=== PATIENT | male | born 1925 | race Native Hawaiian/Other Pacific Islander ===

== ENCOUNTER 2016-12-29 13:00 | Emergency (ER) | payer MEDICARE ==
[2016-12-29 13:01] VITALS: BMI 28.1
[2016-12-29 13:16] VITALS: O2SAT 100
[2016-12-29] MEDS ORDERED: Bacitracin 500 Units/gm Oint Foilpak UD TOP ONE (13:38)
--- NOTE | 2016-12-29 13:40 | C.PDOC ---
History Of Present Illness Pt ambulates with a walker. He tried to ambulate without his walker and he therefore lost balance and fell. He scraped his left elbow against a piece of furniture on the way down. Fall was witnessed by his daughter. No LOC. - HPI Time Seen by Provider: 12/29/16 13:23 Chief Complaint (Nursing): Trauma History Per: Patient, Family Injury Occurred (Timing): Hours Ago: (1) Location Of Injury: Left: Elbow Severity: Mild Additional History Per: Prior Records - Fall Fall:Prior To Injury: Lost Balance Past Medical History Reviewed: Historical Data, Nursing Documentation, Vital Signs Vital Signs: Last Vital Signs Temp 98.4 F 12/29/16 13:12 Pulse 76 12/29/16 13:12 Resp 18 12/29/16 13:12 BP 133/70 12/29/16 13:12 Pulse Ox 100 12/29/16 14:07 - Medical History PMH: Arthritis, CVA, Dementia, Diabetes, Diverticulitis (1991 GI bleed), HTN, Hypercholesterolemia, TIA Surgical History: Coronary Stent (september 2015 at [facility] [place]) - [facility] Procedures DETACHMENT AT LEFT 5TH TOE, COMPLETE, OPEN APPROACH (12/06/15) DILATION OF LEFT FEMORAL ARTERY, PERCUTANEOUS APPROACH (09/23/15) DILATION OF LEFT FOOT ARTERY, PERCUTANEOUS APPROACH (02/26/16) EXCISION OF LEFT METATARSAL, OPEN APPROACH (02/26/16) FLUOROSCOPY OF SUPERIOR VENA CAVA, GUIDANCE (06/29/16) INSERTION OF INFUSION DEV INTO SUP VENA CAVA, PERC APPROACH (06/29/16) OTHER LOCAL DESTRUC SKIN (08/23/14) REPLACE L FOOT SUBCU/FASCIA W NONAUT SUB, OPEN (02/26/16) ULTRASONOGRAPHY OF RIGHT UPPER EXTREMITY VEINS, GUIDANCE (06/29/16) Family History: States: Unknown Family Hx, Diabetes - Social History Hx Tobacco Use: No Hx Alcohol Use: No Hx Substance Use: No - Immunization History Hx Tetanus Toxoid Vaccination: Yes Hx Influenza Vaccination: No Hx Pneumococcal Vaccination: Yes (2012) Review Of Systems Constitutional: Negative for: Fever Cardiovascular: Negative for: Chest Pain, Light Headedness Respiratory: Negative for: Shortness of Breath Gastrointestinal: Negative for: Nausea, Vomiting, Abdominal Pain Genitourinary: Negative for: Hematuria Musculoskeletal: Negative for: Neck Pain, Shoulder Pain, Back Pain, Leg Pain Neurological: Negative for: Weakness, Numbness, Seizures, Altered Mental Status , Headache Physical Exam - Physical Exam Appears: Non-toxic, No Acute Distress Skin: Warm, Dry Head: Atraumatic, Normacephalic Eye(s): bilateral: PERRL, EOMI Neck: Normal ROM, No Midline Cervical Tenderness, No Step Off Deformity, Supple Chest: Symmetrical, No Deformity, No Tenderness Cardiovascular: Rhythm Regular Respiratory: Normal Breath Sounds, No Accessory Muscle Use Gastrointestinal/Abdominal: Soft, No Tenderness Back: Normal Inspection, No CVA Tenderness, No Vertebral Tenderness Extremity: Normal ROM, No Tenderness, Capillary Refill (wnl), No Deformity, No Swelling, Other (skin tear on left elbow area) Extremity: Bilateral: Hips Non-Tender, Pelvis-Stable Pulses: Left Radial: Normal Neurological/Psych: Normal Motor, Normal Sensation Disoriented To: Time (baseline) ED Course And Treatment O2 Sat by Pulse Oximetry: 100 Pulse Ox Interpretation: Normal - Other Rad Left elbow x-rays X-Ray: Viewed By Me, Read By Radiologist Interpretation: IMPRESSION: No evidence of acute fracture or dislocation. Moderate degenerative changes. Reassessment Condition: Improved Disposition Counseled Patient/Family Regarding: Studies Performed, Diagnosis, Need For Followup, Rx Given - Disposition Referrals: Dayanara Barrera MD [Staff Provider] - Disposition: HOME/ ROUTINE Disposition Time: 14:07 Condition: STABLE Additional Instructions: Keep wound clean and dressed. Follow up with your doctor this week. Return to the ER if you develop redness, swelling, worsening of symptoms or if you have any other concerns. Prescriptions: Bacitracin Ointment [Bacitracin] 1 applic TOP BID #1 tube Instructions: Skin Tear (ED), Fall Prevention for Older Adults (ED) Forms: [employer] (Romanian) - Clinical Impression Clinical Impression: Skin tear of left elbow without complication, Fall at home
[2016-12-29] MEDS ORDERED: Bacitracin 500 Units/gm Oint Foilpak UD ONE (13:56)
--- NOTE | 2016-12-29 14:06 | RAD ---
PROCEDURE: Radiographs of the left elbow. HISTORY: Injured during fall COMPARISON: Comparison is made to prior study dated 01/20/2015. FINDINGS: BONES: No evidence of acute fracture. JOINTS: Moderate osteoarthritic changes. SOFT TISSUES: Soft tissue calcification and soft tissue swelling. JOINT EFFUSION: No radiographic evidence of significant joint effusion. OTHER FINDINGS: None IMPRESSION: No evidence of acute fracture or dislocation. Moderate degenerative changes.
[2016-12-29 14:23] VITALS: BP 100/58; PULSE 78; RESP 20; TEMP 93.8
== END 2016-12-29 14:23 | disposition home or self-care (01) ==
LOC: C.ER 13:00
DX: S51.012A Laceration without foreign body of left elbow, initial encounter (principal); W18.30XA Fall on same level, unspecified, initial encounter; Y92.009 Unspecified place in unspecified non-institutional (private) residence as the place of occurrence of the external cause